=== PATIENT | female | born 1995 | race Caucasian/White ===

== ENCOUNTER → 2020-02-09 09:16 | Outpatient (BNVA) | payer OTHER, MEDICAID, SELFPAY | PROVIDERS: Family Provider Obstetrics & Gynecology; PCP Obstetrics & Gynecology; Visit Provider Obstetrics & Gynecology | DX: O99.215 Obesity complicating the puerperium (principal); E66.9 Obesity, unspecified | CPT/HCPCS: 81000; 82950; 84315; 84443; 85027 ==

== ENCOUNTER → 2020-02-25 08:52 | Outpatient (BNVA) | payer OTHER, MEDICAID, SELFPAY | PROVIDERS: Family Provider Obstetrics & Gynecology; PCP Obstetrics & Gynecology; Visit Provider Obstetrics & Gynecology | DX: O09.30 Supervision of pregnancy with insufficient antenatal care, unspecified trimester (principal); O09.90 Supervision of high risk pregnancy, unspecified, unspecified trimester; E66.01 Morbid (severe) obesity due to excess calories; O35.0XX0 Maternal care for (suspected) central nervous system malformation in fetus, not applicable or unspecified; E03.9 Hypothyroidism, unspecified; O24.419 Gestational diabetes mellitus in pregnancy, unspecified control; Z04.89 Encounter for examination and observation for other specified reasons; Z3A.00 Weeks of gestation of pregnancy not specified | CPT/HCPCS: 81000; 84315 ==

== ENCOUNTER → 2020-03-02 14:52 | Outpatient (BNVA) | payer MEDICAID, SELFPAY | PROVIDERS: Family Provider Obstetrics & Gynecology; PCP Obstetrics & Gynecology; Visit Provider Obstetrics & Gynecology | DX: Z34.90 Encounter for supervision of normal pregnancy, unspecified, unspecified trimester (principal); Z3A.00 Weeks of gestation of pregnancy not specified | CPT/HCPCS: 81000; 84315 ==

== ENCOUNTER → 2020-03-16 12:07 | Outpatient (BNVA) | payer MEDICAID, SELFPAY | PROVIDERS: Family Provider Obstetrics & Gynecology; PCP Obstetrics & Gynecology; Visit Provider Obstetrics & Gynecology | DX: O24.419 Gestational diabetes mellitus in pregnancy, unspecified control (principal); O09.30 Supervision of pregnancy with insufficient antenatal care, unspecified trimester; E66.01 Morbid (severe) obesity due to excess calories; O09.90 Supervision of high risk pregnancy, unspecified, unspecified trimester; E03.9 Hypothyroidism, unspecified; Z3A.00 Weeks of gestation of pregnancy not specified | CPT/HCPCS: 81000; 84315 ==

== ENCOUNTER 2020-03-23 10:32 | Outpatient (CLI) | payer MEDICAID, SELFPAY ==
[2020-03-23 10:46] VITALS: BMI 42.9
[2020-03-23 10:48] VITALS: BP 126/44; PULSE 93
[2020-03-23 10:55] VITALS: RESP 18; TEMP 36.8
[2020-03-23 11:11] VITALS: BP 129/76; PULSE 110
[2020-03-23 11:31] VITALS: BP 110/56; PULSE 105
[2020-03-23 11:46] VITALS: BP 110/56; PULSE 105; RESP 18
--- NOTE | 2020-03-23 13:57 | P.PCN_ITS ---
Procedure/Consent Procedure Narrative: NONSTRESS TEST: Place of test: [facility] [place]-L&D Indication: Gestational diabetic Date and time of test: 03/23/2020 Baseline: 125 Variability: Moderate Accelerations: present Decelerations: none Tocometry: no Contractions INTERPRETATION: NST reactive , continue kick counts
--- NOTE | 2020-03-23 13:57 | PM.ACPR ---
Procedure/Consent Procedure Narrative: NONSTRESS TEST: Place of test: [facility] [place] Indication: Gestational diabetic Date and time of test: 03/23/2020 Baseline: 125 Variability: Moderate Accelerations: present Decelerations: none Tocometry: no Contractions INTERPRETATION: NST reactive , continue kick counts
[2020-03-23 14:24] VITALS: BP 110/56; PULSE 105; RESP 18
--- NOTE | 2020-03-23 15:41 | P.PCN_ITS ---
Procedure/Consent Procedure Narrative: NONSTRESS TEST: Place of test: [facility] [place] Indication: Gestational diabetes at 34 weeks and 0 days Date and time of test: 03/23/2020, 11 AM Baseline: 125 Variability: Moderate variability Accelerations: Accelerations present Decelerations: No decelerations Tocometry: No contractions INTERPRETATION: NST reactive, continue kick counts
== END 2020-03-23 11:47 | disposition home or self-care (01) ==
LOC: OPOB 10:40 → OBGYN 10:41
PROVIDERS: Family Provider Obstetrics & Gynecology; PCP Obstetrics & Gynecology; Visit Provider Obstetrics & Gynecology
DX: O24.419 Gestational diabetes mellitus in pregnancy, unspecified control (principal); Z3A.00 Weeks of gestation of pregnancy not specified
CPT/HCPCS: 12345; 59025; 81000; 84315

== ENCOUNTER 2020-03-31 13:40 | Outpatient (CLI) | payer MEDICAID, SELFPAY ==
[2020-03-31 14:00] VITALS: RESP 18; TEMP 36.8
[2020-03-31 14:01] VITALS: BMI 43.4
[2020-03-31 14:29] VITALS: BP 134/72; PULSE 93; RESP 18
--- NOTE | 2020-03-31 16:44 | PM.ACPR ---
Procedure/Consent Procedure Narrative: NONSTRESS TEST: Place of test: [facility] [place]-L&D Indication: Gestational diabetic Date and time of test: 03/31/2020 Baseline: 130 Variability: Moderate variability Accelerations: Accelerations present Decelerations: No decelerations Tocometry: No contractions INTERPRETATION: NST reactive, continue kick counts
--- NOTE | 2020-03-31 16:44 | P.PCN_ITS ---
Procedure/Consent Procedure Narrative: NONSTRESS TEST: Place of test: [facility] [place]-L&D Indication: Gestational diabetic Date and time of test: 03/31/2020 Baseline: 130 Variability: Moderate variability Accelerations: Accelerations present Decelerations: No decelerations Tocometry: No contractions INTERPRETATION: NST reactive, continue kick counts
== END 2020-03-31 14:35 | disposition home or self-care (01) ==
LOC: OPOB 13:51 → OBGYN 13:52
PROVIDERS: Family Provider Obstetrics & Gynecology; PCP Obstetrics & Gynecology; Visit Provider Obstetrics & Gynecology
DX: O24.419 Gestational diabetes mellitus in pregnancy, unspecified control (principal); Z3A.00 Weeks of gestation of pregnancy not specified
CPT/HCPCS: 12345; 59025; 81000; 84315

== ENCOUNTER 2020-04-04 19:51 | Inpatient (IN) | payer OTHER, MEDICAID, SELFPAY ==
[2020-04-04] VITALS (14 sets, daily range): BP systolic 0–152; BP diastolic 0–92; PULSE 67–104; RESP 16–20; TEMP 36.7–36.9; O2SAT 97–100; BMI 44.3
[2020-04-04] MEDS: lactated ringers 1,000 ML 999 ML IV (20:15)
[2020-04-04] MEDS: citric acid-sodium citrate 30 mL UDC PO (20:35)
[2020-04-04] MEDS: famotidine 20 mg/2 mL INJ IVP (20:35)
[2020-04-04] MEDS: metoclopramide 5 mg/mL SDV 2 mL 10 MG IVP (20:35)
--- NOTE | 2020-04-04 20:38 | P.HP_ITS ---
Providers/Chief Complaint Primary Care Provider: Markel Ordoñez MD Chief Complaint: contractions HPI REHAB DEPARTMENT MANAGER History of Present Illness Ghazal Sharp is a 24 year old female 1, para 0 with an unknown LMP and an EDC of 05/04/2020 based on a 22-week ultrasound which places her at 35-5/7 weeks gestation today. She presented to labor and delivery at 19:45 with complaints of contractions which had started at approximately 15:30 today. She stated that she initially thought she was having [place] contractions, but they continued to strengthen and became closer together. She denied leaking of fluid. She reported having spotting that started at approximately 19:00. She denied any other complaints. She reported the baby has been moving well. On presentation she was found to be 95% effaced 4 to 5 cm dilated and -2 station and breech. Bedside ultrasound had been performed by the nurses confirming breech presentation. care had started at 22 weeks gestation prior to transfer to our care from [facility] at essentially 28 weeks in the . Her main provider locally is Dr. Martin. She was diagnosed with gestational diabetes which has been diet controlled. LABS 12/18/2019 (done at 21 weeks) Blood type: AB positive Antibody screen : Negative Intake CBC: 11.1<12.6/38.9> 240 Cystic fibrosis: Declined Rubella : Immune Hepatitis B surface antigen: Nonreactive Hepatitis C antibody: Nonreactive RPR: Nonreactive HIV: Nonreactive Drug screen: Negative Urine culture: Contaminants, no infection NIPT: Declined Hemoglobin A1c: 5.2 TSH: 3.220-slightly elevated for second trimester of Quantitative beta-hC,655 Varicella-zoster:> 4000--immune 12/25/2019 Gonorrhea: Negative Chlamydia: Negative Pap smear: Negative for intraepithelial lesion or malignancy Quad screen/ AFP: Too late 02/09/2020 28 week CBC: 7.4<11.7/36.9> 213 GCT: 205---diagnosed with gestational diabetes TSH-2.57-normal for third trimester OB Ultrasound LMP-unsure 1) 01/05/2020([place]-dating) AUA-22w6d GEOVANNA by sono-05/04/2020 DATES -------> single live intrauterine , breech, EFW-538 g, 1 pound 3 ounces, 2) 02/11/2020([facility]-anatomy) AUA-27w6d GEOVANNA by sono-05/06/2020 S=D ------> single live intrauterine , male, breech, cervix-4.8 cm, anterior grade 1 placenta without previa, MAGALI normal, EFW 1055 g, 2 pounds 5 ounces, 14th percentile. Visualized anatomy appears normal except for nonvisualization of heart, profile, kidneys and cord insertion. Cerebral ventricles minimally enlarged measuring 1.03 cm. Recommend repeat sonogram in 2 to 3 weeks to reassess the structures and to follow-up on growth. Review of Systems Const: Denies: fever(s) or chills Eyes: Denies: change in vision ENMT: Denies: throat pain or nasal congestion Card: Denies: chest pain, palpitations or lightheadedness Resp: Denies: dyspnea, productive cough, non-productive cough or wheezing GI: Denies: abdominal pain, nausea or vomiting : Reports: urinary frequency and vaginal bleeding; Denies: dysuria or vaginal discharge Neuro: Denies: headache(s) or dizziness Psych: Denies: anxiety or depression Checo/Lymph: Denies: easy bruising or easy bleeding Medications/Allergies Home Medications Medication Instructions Recorded Confirmed Last Taken Type acetaminophen 500 mg tablet 500 mg PO Q6H PRN 02/09/20 03/31/20 Unknown History prenat.vits,alaina,vqn-lgyr-undps 1 tab PO DAILY 02/09/20 03/31/20 Unknown History blood-glucose meter #1 each 02/10/20 03/31/20 Unknown Rx lancets-blood glucose strips 30 #200 each 02/10/20 03/31/20 Unknown Rx gauge and blood glucose strips combo pack famotidine 20 mg tablet 20 mg PO DAILY 02/17/20 03/31/20 Unknown History blood sugar diagnostic #100 each 03/31/20 03/31/20 Unknown Rx Allergies Allergy/AdvReac Type Severity Reaction Status Date / Time No Known Allergies Allergy Unverified 03/23/20 09:33 PFSH REHAB DEPARTMENT MANAGER PFSH: Medical History History of asthma Asthma triggered by exercise as a child. Has not used an inhaler since the age of 12. Hypothyroidism Diagnosed with hypothyroidism at the age of 19 and was on medication until the age of 21. She states that levels were normal then and her medication was stopped. She states that her levels were normal at the start of the . No pertinent past medical history Denies diabetes, asthma, hypertension, seizures, DVT/PE PMD: Estrellita Huerta Surgical History Fracture of leg Surgery for fracture of her left lower leg-she does not remember exactly when this was done Status post ear surgery 7-had tubes placed in her ears Family History Father Diabetes Heart disease Family/Other Diabetes paternal aunt Mother Thyroid condition Denies family history of Colon cancer Ovarian cancer Hyperlipidemia Breast cancer Hypertension Uterine cancer Stroke Social History Smoking and tobacco status: never smoked Alcohol intake: never Substance/Drug Use: former Date of last use: Smoked marijuana as a teenager History History History 1 Term Miscarriages/Ectopic Living Children Care GEOVANNA Calculator Estimated Delivery Date Method Current WG Current Estimate 05/04/20 Ultrasound #1 35w 5d Expected Delivery Route/Plan Vaginal Specific Issues/Plans * Obesity-BMI 42 at 28 weeks(weight was 289 at 21 weeks on 12/25/2019) * Limited care * Gestational diabetes diagnosed at 28 weeks with GCT of 205---well-controlled with diet Vitals/I&O/Wt Last Vital Signs Pulse 104 H 04/04/20 20:29 BP 142/92 04/04/20 20:29 Physical Exam Const: COMMON NORMALS: no acute distress, average body habitus, alert and well nourished GENERAL APPEARANCE: well developed ORIENTATION/CONSCIOUSNESS: Yes oriented to person, Yes oriented to place and Yes oriented to time Resp: COMMON NORMALS: normal respiratory effort and clear to auscultation bilaterally AUSCULTATION: clear to auscultation bilaterally Cardio: COMMON NORMALS: regular rate, regular rhythm, No gallops present (Cardio), No murmurs present (Cardio) and No rub (Cardio) RATE: regular rate RHYTHM: regular rhythm GI: COMMON NORMALS: Soft to palpation, non-tender, No hepatosplenomegaly present and no masses (Except for nontender gravid uterus) INSPECTION: Yes central obesity and Yes gravid abdomen AUSCULTATION: Yes normoactive bowel sounds PALPATION: Yes Soft to palpation, Yes No hepatosplenomegaly present and No Hernia present : EXTERNAL FEMALE EXAM: No Hernia present Extremity: COMMON NORMALS: no calf tenderness Neuro: SENSORIUM/ORIENTATION: Yes alert, Yes oriented to person, Yes oriented to place and Yes oriented to time Psych: COMMON NORMALS: normal affect MOOD & AFFECT: Yes euthymic mood A&P Assessment and plan (1) labor in third trimester: Patient is a 24-year-old white female G1, P0 at 35-5/7 weeks gestation. She is erik regularly and is 4 to 5 cm dilated 90% effaced. Based upon this she is diagnosed as being in labor. Fluid bolus has started and she has continued to contract. As a result, we are preparing for early delivery. Dr. Cartwright who is on-call for pediatrics has been notified and is currently present. Status: Acute (2) Breech presentation of fetus: Baby is confirmed as being a breech presentation. I discussed with the patient and her partner the risks of attempting a vaginal breech delivery. Risks of section were discussed including bleeding to the point of needing a blood transfusion, infection, and injury to intra-abdominal organs including bowel, bladder, blood vessels, nerves, and ureters. Questions were answered. She wished to proceed with a section. She is being prepared for this. Status: Acute Qualifiers: Fetus number: single or unspecified fetus Qualified Code(s): O32.1XX0 - Maternal care for breech presentation, not applicable or unspecified (3) Gestational diabetes: GDM was diagnosed at 28 weeks based upon a 1 hour glucose test of 205. Blood sugars have been reportedly well controlled with diet. Status: Acute Qualifiers: Gestational diabetes mellitus control: diet-controlled Trimester: third trimester Qualified Code(s): O24.410 - Gestational diabetes mellitus in , diet controlled (4) Morbid obesity: Status: Acute (5) Hypothyroidism: Patient has a history of hypothyroidism, but thyroid testing has been normal during . Patient is not currently on thyroid medication. Status: Acute Qualifiers: Hypothyroidism type: acquired Qualified Code(s): E03.9 - Hypothyroidism, unspecified Attestations Medical Necessity Statement*: Patient is in labor at 35 weeks in a breech presentation. Coding Level of Care Code Acute Pocket Machine Operator for Chg Fwd Diagnoses labor in third trimester O60.03 Breech presentation of fetus O32.1XX0 Fetus number: single or unspecified fetus Gestational diabetes O24.410 Gestational diabetes mellitus control: diet-controlled Trimester: third trimester Morbid obesity E66.01 Hypothyroidism E03.9 Hypothyroidism type: acquired
--- NOTE | 2020-04-04 20:40 | ANES.PREANE2 ---
Pre-Anesthetic Assessment Pre-Anesthetic Assessment: Height/Weight: Height 1.78 m Pulse BP 104 H 142/92 04/04/20 20:29 04/04/20 20:29 Preop Diagnosis: IUP Proposed Procedure: c-sestion Familial anesthetic complications: denies Was Beta Cortez taken within 24 hours: N/A Last Intake: 18:40 (had meatload, mashed potatoes and green beans at 20:00) Social: Social History: No alcohol and No tobacco Exam: Pre-Anes Outpt Exam: alert, oriented x 3 and clear to auscultation bilaterally Airway: Submandibular: WNL Cervical ROM: WNL MP: 2 Pulmonary: Comments: chronic bronchitis as a child CV/HEM: CV/HEM: None reported Hepatic: Hepatic: None reported GI: GI: GERD Metabolic: Metabolic: DM and Morbid obesity Musc/skel: Musc/skel: None reported Neuropsych: Neuropsych: None reported Anesthetic Plan: ASA status: 2 Anesthesia: Anesthesia Evaluation and Eval. for regional block Meds/Allergies Current Medications: Current Medications Generic Name Dose Route Start Last Admin Trade Name Freq PRN Reason Stop Dose Admin Cefazolin Sodium/D extrose 2 gm in 50 mls @ 100 mls/hr 04/04/20 20:24 04/04/20 20:36 Kefzol IV 04/04/20 20:53 100 mls/hr [employer] Administration Protocol PFS Anesthesia PFSH: Medical History History of asthma Asthma triggered by exercise as a child. Has not used an inhaler since the age of 12. Hypothyroidism Diagnosed with hypothyroidism at the age of 19 and was on medication until the age of 21. She states that levels were normal then and her medication was stopped. She states that her levels were normal at the start of the . No pertinent past medical history Denies diabetes, asthma, hypertension, seizures, DVT/PE PMD: Estrellita Huerta Surgical History Fracture of leg Surgery for fracture of her left lower leg-she does not remember exactly when this was done Status post ear surgery 7-had tubes placed in her ears Family History Father Diabetes Heart disease Family/Other Diabetes paternal aunt Mother Thyroid condition Denies family history of Colon cancer Ovarian cancer Hyperlipidemia Breast cancer Hypertension Uterine cancer Stroke Data Anesthesia Cardiac Studies: No Data to Display
--- NOTE | 2020-04-04 20:50 | PC.NURSE ---
Dr. Ordoñez at bedside.
[2020-04-04 20:53] LABS: Basophils % 0.2 %; Eosinophils % 0.4 %; Hematocrit 36.6 % (37.0-47.0); Hemoglobin 11.4 g/dL (11.5-15.3); Lymphocytes # 1.6 10^3/uL (0.8-4.8); Lymphocytes % 15.4 %; Mean Corpuscular HGB Conc 31.1 g/dL (30.0-36.0); Mean Corpuscular Hemoglobin 25.9 pg (28.0-34.0); Monocytes # 0.7 10^3/uL (0.2-0.9); Monocytes % 6.7 %; Neutrophils # 7.78 10^3/uL (1.8-7.7); Neutrophils % 77.1 %; Nucleated Red Blood Cells % 0 %; Platelet Count 180 10^3/cmm (130-400); Red Blood Count 4.41 10^6/uL (4.1-5.3); Red Cell Distribution Width 14.2 % (12.1-15.1); White Blood Count 10.1 10^3/uL (4.0-10.0)
--- NOTE | 2020-04-04 22:24 | P.OP_ITS ---
Operative Report Date of procedure: April 04, 2020 Pre-op Diagnosis: 1. Breech presentation, 2. labor in third trimester, 3. at 35-5/7 weeks gestation, 4. Diet controlled gestational diabetes in third trimester, 5. Obesity complicating in third trimester Post-op Diagnosis: 1. Complete breech presentation, 2. labor with delivery in third trimester, 3. at 35-5/7 weeks gestation, 4. Gestational diabetes - delivered, 5. Obesity complicating - delivered, 6. Viable male infant. Procedure Done: Primary low transverse section Specimens removed/disposition: None Surgeon: Markel Ordoñez Coding Specialist Home Health: None Anesthesia: Other (Spinal) Estimated blood loss (mL): 500 IV fluids (mL): 1,400 Complications: None Findings: 1. Viable, male , complete breech presentation, weighing 5 lbs 15 oz with a length of 18-3/4 inches and Apgars of 7 at 1 minute 9 at 5 minutes. 2. Normal appearing uterus, tubes, and ovaries. Brief History: Patient is a 24-year-old white female 1, para 0 with an unknown LMP and an EDC of 05/04/2020 based on a 22-week ultrasound, which placed her at 35-5/7 weeks gestation. Patient presented to L&D at 19:45 with a complaint of contractions that had started at approximately 15:30. On presentation she was erik every 2 to 3 minutes. She was 4 to 5 cm dilated and 95% effaced. She was suspected of not being vertex based upon the nurses initial exam. Ultrasound confirmed breech presentation. At approximately 21:00 she was found to be 100% effaced and 6 cm dilated with the presenting within bulging membranes. With her being in labor with a breech presentation, she was taken to the OR for a primary section. Procedure: Patient was taken to the operating room where spinal anesthesia was obtained. She was prepped and draped in the usual sterile fashion in a dorsal supine position with a leftward tilt. Funes catheter and sequential compression boots had been placed prior to starting the case. A Pfannenstiel skin incision was made with a knife and carried down to the underlying fascia with the knife. Fascia was incised in the midline with the knife and extended laterally with Diallo scissors. Superior aspect of the fascia was grasped with Damian clamps, elevated, and sharply and bluntly dissected. The inferior aspect of the fascia was grasped with Damian clamps, elevated, and sharply and bluntly dissected. The rectus muscles were in the midline. Peritoneum was sharply entered. Peritoneal incision was extended both superiorly and inferiorly with good visualization of the bladder. Bladder blade was inserted. The vesicouterine peritoneum was tented up and sharply entered. It was extended laterally and the bladder flap was created digitally. Bladder blade was reinserted. A transverse incision was made with the knife in the lower uterine segment. Clear fluid was obtained upon entry into the uterine cavity. The feet were presenting at the cervix. They were grasped and brought out through the incision. The baby was delivered up to the shoulders at which time it was rotated in a counterclockwise direction facilitating delivery of the right arm. It was rotated in a clockwise direction facilitating delivery of the left arm. The baby was then elevated and the head delivered. No nuchal cords were noted. Cord was clamped and cut and the infant was handed off to Dr. Cartwright and the waiting nurses. Cord blood was obtained. Placenta was delivered via uterine massage. Patient received 20 units of Pitocin in the IV fluids. The uterus was cleared of clots and debris. The uterine incision was closed in a running locking fashion using 0 Vicryl suture. The incision was imbricated using 0 Vicryl suture in a horizontal mattress fashion. The incision was inspected and noted to be hemostatic. The uterine incision was irrigated and noted to be hemostatic. The gutters were cleared of clots and blood. The rectus muscles and peritoneum were reapproximated in the midline using interrupted stitches of 2-0 Vicryl suture. The muscle layer was irrigated and noted to be hemostatic. The fascia was reapproximated using 0 Vicryl suture in a running fashion. The subcutaneous layer was irrigated and brought to hemostasis using electrocautery. It was reapproximated using 3-0 plain suture in an interrupted fashion. Skin was reapproximated using 4-0 Vicryl suture in a subcuticular fashion. Steri-Strips were applied. Patient tolerated the procedures well. Sponge, needle, and instrument counts we re correct. DRAINS: Funes catheter POSTOPERATIVE STATUS: The patient was left to recover in satisfactory condition Associated Problem List Diagnoses (1) Breech presentation of fetus: Qualifiers: Fetus number: single or unspecified fetus Qualified Code(s): O32.1XX0 - Maternal care for breech presentation, not applicable or unspecified (2) labor in third trimester: Qualifiers: labor delivery status: with delivery in third trimester Fetus number: single or unspecified fetus Qualified Code(s): O60.14X0 - labor third trimester with delivery third trimester, not applicable or unspecified (3) Gestational diabetes mellitus, delivered, current hospitalization: (4) Maternal obesity, delivered, current hospitalization:
[2020-04-04] MEDS: dextrose 5%-lactated ringers 1,000 ML 125 ML IV (23:20)
[2020-04-05] VITALS (15 sets, daily range): BP systolic 115–146; BP diastolic 74–93; PULSE 82–104; RESP 16–20; TEMP 36.5–37.1; O2SAT 97–98
[2020-04-05 05:31] LABS: Hematocrit 33.4 % (37.0-47.0); Hemoglobin 10.5 g/dL (11.5-15.3); Mean Corpuscular HGB Conc 31.4 g/dL (30.0-36.0); Mean Corpuscular Hemoglobin 26.6 pg (28.0-34.0); Mean Corpuscular Volume 84.8 fL (81-99); Mean Platelet Volume 13.7 fL (7.4-10.4); Platelet Count 159 10^3/cmm (130-400); Red Blood Count 3.94 10^6/uL (4.1-5.3); White Blood Count 13.9 10^3/uL (4.0-10.0)
[2020-04-05] MEDS: ketorolac 30 mg/mL INJ IVP ×2 (05:44→16:04)
--- NOTE | 2020-04-05 06:41 | PC.NURSE ---
AT 0620, NURSE PROVIDED STAND-BY ASSISTANCE TO PT SHE AMBULATED IN ROOM. PT WALKED 5 LAPS BACK AND FORTH INSIDE ROOM. PT TOLERATED AMBULATION WELL.
[2020-04-05] MEDS: docusate sodium 100 mg Capsule PO ×2 (08:42→17:50)
[2020-04-05] MEDS: prenatal vitamin Capsule 1 CAP PO (08:42)
--- NOTE | 2020-04-05 08:54 | ANE.PACU2 ---
Inpatient post-anesthesia follow up: Airway intact: Yes Vital signs: Temperature 98.2 F Pulse Rate 101 Respiratory Rate 18 Blood Pressure 103/75 Pulse Oximetry 98 Oxygen Delivery Me thod Room Air Oxygen Flow Rate Fraction of Inspir ed Oxygen Hydration adequate: Yes Nausea and vomiting: No Mental status: Baseline Additional Comments: no Lower extremity numbness/weakness, up and walking, no signs of infection at neuraxial site, no headaches
[2020-04-05] MEDS: HYDROcodone-acetaminophen 5-325 mg Tablet PO ×2 (16:04→22:00)
--- NOTE | 2020-04-05 18:56 | P.PN_ITS ---
Subjective Subjective: Interval history: Denies any problems or concerns. States pain has been well controlled. Denies any shortness of breath or chest pains. Denies lightheadedness or dizziness. Reports tolerating regular diet without nausea or vomiting. Denies problem with urination. Vitals/I&O/Wt Last Vital Signs Temp 98.4 F 04/05/20 16:21 Pulse 99 04/05/20 16:21 Resp 20 H 04/05/20 16:21 BP 120/82 04/05/20 16:21 Pulse Ox 97 04/05/20 16:21 04/05/20 04/05/20 04/05/20 06:59 14:59 22:59 Intake Total 2300 / 2300 600 / 600 Output Total 1150 / 1150 1300 / 1300 Balance 1150 / 1150 -700 / -700 Weight last 48 hrs Weight 308 lb 15.998 oz Weight 309 lb Weight 309 lb Physical Exam Const: COMMON NORMALS: no acute distress, average body habitus, alert and well nourished GENERAL APPEARANCE: well developed ORIENTATION/CONSCIOUSNESS: Yes oriented to person, Yes oriented to place and Yes oriented to time Resp: COMMON NORMALS: normal respiratory effort and clear to auscultation bilaterally AUSCULTATION: clear to auscultation bilaterally Cardio: COMMON NORMALS: regular rate, regular rhythm, No gallops present (Cardio) and No rub (Cardio) RATE: regular rate RHYTHM: regular rhythm GI: COMMON NORMALS: Soft to palpation, non-tender, No hepatosplenomegaly present and no masses AUSCULTATION: Yes normoactive bowel sounds PALPATION: Yes Soft to palpation, Yes No hepatosplenomegaly present and No Herni a present : EXTERNAL FEMALE EXAM: No Hernia present Extremity: COMMON NORMALS: no calf tenderness Neuro: SENSORIUM/ORIENTATION: Yes alert, Yes oriented to person, Yes oriented to place and Yes oriented to time Psych: COMMON NORMALS: normal affect MOOD & AFFECT: Yes euthymic mood Urinary Catheter Management^: Funes Latex: Cath Placed During This Visit: yes, but has since been removed by the nurse Reason for Continuing Indwelling Catheter: Decision to DC Catheter Urinary Catheter Date of Insertion: 04/04/20 Urinary Catheter Time of Insertion: 20:57 Date Urinary Catheter Removed: 04/05/20 Time Urinary Catheter Discontinued: 08:50 Data : 10/19/20 05:25 A&P Assessment and plan (1) Breech presentation of fetus: Postoperative day 1 status post primary section Patient is doing well at this time. Diet has been advanced. Funes catheter was removed. Has been ambulating in the room. Pain has been controlled with Duramorph. Discussed with patient that pain will probably increase during the night as Duramorph wears off. Continue current management. Status: Acute Qualifiers: Fetus number: single or unspecified fetus Qualified Code(s): O32.1XX0 - Maternal care for breech presentation, not applicable or unspecified Attestations Medical Necessity Statement*: Patient is postoperative day 1 from primary section Coding Level of Care Code Acute Special Needs Nanny for Chg Fwd Exam Detailed Diagnoses Breech presentation of fetus O32.1XX0 Fetus number: single or unspecified fetus
[2020-04-05] MEDS: ibuprofen 800 mg tablet PO (22:00)
--- NOTE | 2020-04-06 00:41 | PC.NURSE ---
Staff was educating pt. on for nearly an hour. As the staff was leaving the room the pt. took baby off breast and stuck the pacifier in the baby's mouth.
[2020-04-06 04:00] VITALS: BP 103/75; PULSE 101; RESP 18; TEMP 36.8; O2SAT 98
[2020-04-06] MEDS: HYDROcodone-acetaminophen 5-325 mg Tablet PO (07:35)
[2020-04-06] MEDS: docusate sodium 100 mg Capsule PO (07:36)
[2020-04-06] MEDS: prenatal vitamin Capsule 1 CAP PO (07:36)
[2020-04-06] MEDS: ibuprofen 800 mg tablet PO (09:14)
[2020-04-06 09:18] LABS: Coronavirus Lab Test PTC Negative
[2020-04-06 10:25] VITALS: BP 127/84; PULSE 92; RESP 20; TEMP 37.1; O2SAT 96
--- NOTE | 2020-04-06 13:21 | P.DS_ITS ---
Discharge Providers SENIOR DESIGNER Date of Admission: 04/04/20 19:51 Date of Discharge: 04/06/20 Attending Provider at Admission: Markel Ordoñez MD Attending Provider at Discharge: Markel Ordoñez MD Primary Care Provider: Markel Ordoñez MD Diagnoses at Discharge Discharge Diagnosis (1) labor in third trimester: Status: Acute Qualifiers: labor delivery status: with delivery in third trimester Fetus number: single or unspecified fetus Qualified Code(s): O60.14X0 - labor third trimester with delivery third trimester, not applicable or unspecified (2) Breech presentation of fetus: Status: Acute Qualifiers: Fetus number: single or unspecified fetus Qualified Code(s): O32.1XX0 - Maternal care for breech presentation, not applicable or unspecified (3) Gestational diabetes mellitus, delivered, current hospitalization: Status: Acute (4) Maternal obesity, delivered, current hospitalization: Status: Acute Reason for Visit Reason for Visit: contractions Hospital Course Hospital Course: Patient is a 24-year-old white female 1, para 0 with an unknown LMP and an EDC of 05/04/2020 based on a 22-week ultrasound, which placed her at 35-5/7 weeks gestation. She presented to L&D on 04/04/2020 at 19:45 with the complaints of contractions which have been present since approximately 15:30 that day. She was found to be erik regularly and was 4 to 5 cm dilated 95% effaced and -2 station with questionable presentation per the nurse. Bedside ultrasound was performed, which confirmed breech presentation. By approximately 21:00 she was 6 cm dilated 100% effaced. She was diagnosed as being in labor and with breech presentation was prepared for section. A primary low transverse section was performed with the delivery of a viable male infant in a complete breech presentation. The baby weighed 5 lbs 15 oz with a length of 18-3/4 inches and Apgars of 7 at 1 minute and 9 at 5 minutes. Following delivery mother and baby were doing well. Patient had received Duramorph in her spinal for pain management following surgery. On postoperative day 1, she was doing well overall. She was tolerating regular diet by that evening without nausea or vomiting. She was ambulating without lightheadedness or dizziness. Her pain was well controlled with the Duramorph. Funes catheter been removed and she was urinating without difficulty. She was reporting that her bleeding had slowed. On postoperative day 2, she was continuing to do well. She stated that she had been hurting more after the Duramorph wore off but pain had been controlled with ibuprofen and [place]. She was tolerating regular diet without nausea or vomiting. She was ambulating without lightheadedness or dizziness. She denied any shortness of breath or chest pains. She denied problems with urination. She stated that her bleeding had slowed. She was breast-feeding. Physical Exam: See below. Plan Patient was being discharged with plan to room-in with baby. Baby was not being released today due to sugar management issues. Patient had been instructed that she did not need to continue to check her sugars at home, but will need a 2-hour glucose tolerance test around her 6 weeks checkup time. Discharge instructions were discussed with her. She was to follow-up in the office at 2 weeks for an incision check and then 6 weeks for exam. Information Peripartum Data: Infant Delivery Method: Section Physical Exam Const: COMMON NORMALS: no acute distress, average body habitus, alert and well nourished GENERAL APPEARANCE: well developed ORIENTATION/CONSCIOUSNESS: Yes oriented to person, Yes oriented to place and Yes oriented to time Resp: COMMON NORMALS: normal respiratory effort and clear to auscultation bilaterally AUSCULTATION: clear to auscultation bilaterally Cardio: COMMON NORMALS: regular rate, regular rhythm, No gallops present (Cardio) and No rub (Cardio) RATE: regular rate RHYTHM: regular rhythm GI: COMMON NORMALS: Soft to palpation, No hepatosplenomegaly present and no masses (Except for uterus.) INSPECTION: Yes incision (Clean, dry, and intact with Steri-Strips present.) AUSCULTATION: Yes normoactive bowel sounds PALPATION: Yes Soft to palpation, Yes Tenderness to palpation present (GI) (Present in the lower abdomen.), Yes No hepatosplenomegaly present and No Hernia present : EXTERNAL FEMALE EXAM: No Hernia present Extremity: COMMON NORMALS: no calf tenderness NARRATIVE EXTREMITY EXAM: Trace to 1+ lower extremity edema. Neuro: SENSORIUM/ORIENTATION: Yes alert, Yes oriented to person, Yes oriented to place and Yes oriented to time Psych: COMMON NORMALS: normal affect MOOD & AFFECT: Yes euthymic mood Urinary Catheter Management^: Funes Latex: Cath Placed During This Visit: yes, but has since been removed by the nurse Reason for Continuing Indwelling Catheter: Decision to DC Catheter Urinary Catheter Date of Insertion: 04/04/20 Urinary Catheter Time of Insertion: 20:57 Date Urinary Catheter Removed: 04/05/20 Time Urinary Catheter Discontinued: 08:50 Discharge Data Data Completed and Pending: Labs from last 24 hours 04/05/20 03:00 Nasal/Oral COVID-1 9 PCR Negative Vitals: Last Vital Signs Temp 98.7 F 04/06/20 10:25 Pulse 92 04/06/20 10:25 Resp 20 H 04/06/20 10:25 BP 127/84 04/06/20 10:25 Pulse Ox 96 04/06/20 10:25 Discharge Plan Discharge Patient Disposition: Home Condition: Stable Prescriptions: New hydrocodone-acetaminophen 5-325 mg Tablet 1 - 2 tab PO Q6H PRN (Reason: Moderate To Severe Pain) Qty: 30 RF: 0 ibuprofen 800 mg Tablet 800 mg PO TID PRN (Reason: pain) Qty: 30 RF: 0 Continued famotidine [Pepcid] 20 mg tablet 20 mg PO DAILY RF: 0 (DME) Blood Glucose Test Strip See Rx Instructions .ROUTE .MEDSUPPLY Qty: 100 RF: 3 acetaminophen [Tylenol Extra Strength] 500 mg tablet 500 mg PO Q6H PRNRF: 0 prenat.vits,alaina,wwu-[id number]-[id number] Tablet 1 tab PO DAILY RF: 0 (DME) blood-glucose meter [[facility] Blood Glucose Monitor] [facility] See Rx Instructions .ROUTE .MEDSUPPLY Qty: 1 RF: 0 (DME) lancets-blood glucose strips 30 gauge combo pack See Rx Instructions .ROUTE .MEDSUPPLY Qty: 200 RF: 0 Discharge Orders: Discharge Order (Routine); Ordered 04/06/20 Ordered By: Markel Ordoñez Referrals: Markel Ordoñez MD [Primary Care Provider] - 2 weeks (Incision check) Jitendra Jean Baptiste MD [Physician] - 6 Weeks ( exam) Discharge Diet: Regular Discharge Activity: Limit activity as instructed Patient Instructions: [facility] Discharge Attestations SENIOR DESIGNER Time Spent in Discharge Care*: less than 30 min Coding Level of Care Code Acute Record Systems Analyst for Chg Fwd Diagnoses labor in third trimester O60.14X0 labor delivery status: with delivery in third trimester Fetus number: single or unspecified fetus Breech presentation of fetus O32.1XX0 Fetus number: single or unspecified fetus Gestational diabetes mellitus, delivered, current hospitalization O24.429 Maternal obesity, delivered, current hospitalization O99.214
[2020-04-06 15:57] VITALS: BP 134/84; PULSE 88; RESP 17; TEMP 36.8
[2020-04-06 15:59] VITALS: BP 134/84; PULSE 88; RESP 17; TEMP 36.8; O2SAT 100
--- NOTE | 2020-04-06 16:02 | PC.NURSE ---
Pt rooming in with baby.
== END 2020-04-06 16:00 | disposition home or self-care (01) | DRG 788 ==
LOC: OPOB 19:52 → OBGYN 21:55
PROVIDERS: Admitting Provider Obstetrics & Gynecology; PCP Obstetrics & Gynecology; Visit Provider Obstetrics & Gynecology
PROC: 10D00Z1 Extraction of Products of Conception, Low, Open Approach (ICD-10-PCS; CPT 59514; principal; 2020-04-04 21:25)
DX: O60.14X0 Preterm labor third trimester with preterm delivery third trimester, not applicable or unspecified (principal); Z3A.35 35 weeks gestation of pregnancy; Z37.0 Single live birth; O99.214 Obesity complicating childbirth; O64.1XX0 Obstructed labor due to breech presentation, not applicable or unspecified; O24.420 Gestational diabetes mellitus in childbirth, diet controlled
CPT/HCPCS: 12345; 36415; 51702; 59025; 59409; 85025; 85027; 86850; 86900; 87635; 96375; 98960; 99211; G0378; J0690; J1885; J2274; J2405; J2765; J3490; J7030